=== PATIENT | female | born 1970 | race American Indian/Alaskan Native ===

== ENCOUNTER 2021-01-25 10:39 | Day surgery (SDC) | payer MEDICARE ==
[2021-01-25] MEDS ORDERED: Cyanocobalamin (Vitamin B12) 1,000 MCG/ML SDV IM ONE (10:45)
[2021-01-25] MEDS ORDERED: Propofol 200 MG/20 ML SDV ONE (11:32)
[2021-01-25] MEDS ORDERED: fentaNYL 100 MCG/2 ML SDV ONE (11:32)
[2021-01-25] MEDS ORDERED: Midazolam 1 MG/ML 2 ML SDV ONE (11:32)
[2021-01-25] MEDS ORDERED: Morphine 15 MG Tab.ER PO ONE (11:45)
[2021-01-25] MEDS ORDERED: MVI, Adult with Vitamin K 10 ML, Thiamine 200 MG, Zinc/Copper/Manganese/Selenium 1 ML i... IV ONE ×4 (11:45)
[2021-01-25] MEDS ORDERED: Morphine 15 MG Tab PO ONE (11:45)
[2021-01-25] MEDS ORDERED: Lactated Ringers 1,000 ML IV SCH (11:45)
[2021-01-25] MEDS ORDERED: Glycopyrrolate 0.2 MG/ML 2 ML SDV IVPUSH ONE (12:00)
[2021-01-25] MEDS ORDERED: Pantoprazole 40 MG Vial IVPUSH ONE (15:25)
--- NOTE | 2021-02-12 16:36 | OR ---
DATE OF PROCEDURE: 01/25/2021 SURGEON: Cisco Sanders MD PREOPERATIVE DIAGNOSIS: Dysphagia and epigastric discomfort with weight loss, status post Josette-en-Y gastric bypass. POSTOPERATIVE DIAGNOSES: 1. Dysphagia and epigastric discomfort with weight loss, status post Josette-en-Y gastric bypass. 2. Large marginal ulcer covered with fibrinous exudate. 3. Multiple subcutaneous tissues adjacent to marginal ulcer with adjacent inflammatory reaction. OPERATIVE PROCEDURE: Upper gastrointestinal endoscopy with biopsy of gastric pouch for CLOtest. ANESTHESIA: IV sedation. INDICATION FOR PROCEDURE: This is a 51-year-old female, status post Josette-en-Y gastric bypass in 2005. In 2018, the patient had significant bowel obstruction, treated at [facility] in [place]. She now presents with dysphagia, epigastric discomfort, and significant weight loss, and plan is to proceed with upper GI endoscopy with biopsies and/or dilation as indicated. Potential risks including bleeding and perforation were discussed, and the patient wishes to proceed. DETAILS OF PROCEDURE: The patient was taken to the operating room, was placed in a left lateral decubitus position. IV sedation was administered, after which the upper GI endoscope was passed orally through the length of the esophagus and into the gastric pouch. At the level of the gastric pouch and gastrojejunostomy, the patient was noted to have striking inflammation involving the gastric pouch. Some sutures had kinked into the gastrojejunostomy, were inflammation. There was a large marginal ulcer which was almost obliterating the lumen of the gastrojejunostomy. The scope which was fairly passed through that area into the otherwise more normal-appearing jejunojejunostomy distal to it. At this point, biopsies were obtained from the pouch and sent for CLOtest for H pylori, minimal bleeding from the biopsy site, it was controlled with electrocautery. At this point, the patient will be given Protonix 40 mg IV in the recovery room, then began 40 mg of Protonix orally b.i.d. x1 month. She will be scheduled for a followup endoscopy in 1 month to see if healing of this. If this fails, then revision of the gastrojejunostomy, removal of most of remaining of gastric pouch would be warranted. Cisco Sanders MD /[id number]
== END 2021-01-25 16:33 | disposition home or self-care (01) ==
LOC: JP.SDS 10:39
PROVIDERS: ATTEND Surgery
DX: K28.9 Gastrojejunal ulcer, unspecified as acute or chronic, without hemorrhage or perforation (principal); K29.70 Gastritis, unspecified, without bleeding; R63.4 Abnormal weight loss; Z88.8 Allergy status to other drugs, medicaments and biological substances; Z98.84 Bariatric surgery status; Z86.711 Personal history of pulmonary embolism
CPT/HCPCS: 36415; 43239; 80048; 82306; 82525; 82607; 82728; 82746; 83735; 84100; 84590; 84630; 87081; A9270; C9113; J2250; J2704; J3010; J3411; J3420; J3490; J7120

== ENCOUNTER 2021-02-21 07:15 | Day surgery (SDC) | payer MEDICARE ==
[~2021-02-21 07:15] MED LIST: Cyanocobalamin (Vitamin B12) 1,000 MCG/ML SDV IM ONE; Midazolam 1 MG/ML 2 ML SDV ONE; Propofol 200 MG/20 ML SDV ONE; fentaNYL 100 MCG/2 ML SDV ONE
[2021-02-21] MEDS ORDERED: Lactated Ringers 1,000 ML IV ONE (08:00)
[2021-02-21] MEDS ORDERED: Morphine 15 MG Tab PO ONE (09:10)
[2021-02-21] MEDS ORDERED: MVI, Adult with Vitamin K 10 ML, Thiamine 200 MG, Zinc/Copper/Manganese/Selenium 1 ML i... IV ONE ×4 (10:00)
--- NOTE | 2021-03-06 16:02 | OR ---
DATE OF PROCEDURE: 02/21/2021 SURGEON: Cisco Sanders MD PREOPERATIVE DIAGNOSIS: History of marginal ulcer. POSTOPERATIVE DIAGNOSIS: Persistent marginal ulcer despite ongoing medical management. OPERATIVE PROCEDURE: Upper GI endoscopy with gastric biopsies for CLOtest. ANESTHESIA: IV sedation. INDICATIONS FOR PROCEDURE: A 51-year-old roughly 1 month status post an upper endoscopy which reported very aggressive appearing marginal ulcer. She has been on ongoing proton pump inhibitor treatment for that and is to undergo a followup endoscopy to ascertain whether or not this has healed. Plan is to proceed with upper GI endoscopy with biopsies and/or dilation as indicated. Potential risks including bleeding and perforation were discussed, and the patient wishes to proceed. DETAILS OF PROCEDURE: The patient was taken to the operating room, placed in a left lateral decubitus position. IV sedation was administered, after which the upper GI endoscope was passed orally through the length of the esophagus into the gastric pouch and from there through the gastrojejunostomy roughly 20 cm into the Josette limb. Findings included at this point a normal esophagus and EG junction area. The gastric pouch was mildly reddened. However, there was still a quite large marginal ulcer. This is perhaps slightly better than a month ago, but still is quite dramatic. Biopsies were once again from the gastric pouch were obtained and sent for CLOtest for H pylori. The situation was discussed with the patient postoperatively. At this point, she appears to have a large marginal ulcer that is refractory to medical management and surgical resection would be appropriate at this point to avoid major complications such as perforation and bleeding. We will obtain some preoperative labs. She will be checking with her schedule and give us a call when she would like to proceed with that resection. This would need to be done as an open approach given her previous extensive bowel surgery related to some necrotic small bowel volvulus formation at [facility] some years ago. Cisco Sanders MD /[id number]
== END 2021-02-21 11:06 | disposition home or self-care (01) ==
LOC: JP.SDS 07:15
PROVIDERS: ATTEND Surgery
DX: K22.10 Ulcer of esophagus without bleeding (principal); Z98.84 Bariatric surgery status; Z88.8 Allergy status to other drugs, medicaments and biological substances
CPT/HCPCS: 36415; 43239; 80053; 82607; 82728; 82746; 83735; 84100; 85027; 86850; 86900; 86901; 87081; A9270; J2250; J2704; J3010; J3411; J3420; J7120

== ENCOUNTER 2021-03-05 07:45 | Inpatient (IN) | payer MEDICARE ==
[~2021-03-05 07:45] MED LIST changes: +Acetaminophen 500 MG Tab PO ONE; -Cyanocobalamin (Vitamin B12) 1,000 MCG/ML SDV IM ONE; +Dexamethasone 4 MG/ML SDV ONE; +Gabapentin 300 MG Cap PO ONE; +Glycopyrrolate 0.2 MG/ML 5 ML MDV ONE; +Lactated Ringers 1,000 ML ONE; -Midazolam 1 MG/ML 2 ML SDV ONE; +Neostigmine Methylsulfate 1 MG/ML 5 ML Syringe ONE; +Ondansetron 4 MG/2 ML SDV ONE; +Rocuronium 50 MG/5 ML Vial ONE; +Scopolamine 1.5 MG Transdermal Patch TRDERM SCH; +Succinylcholine 200 MG/10 ML MDV ONE; -fentaNYL 100 MCG/2 ML SDV ONE; +fentaNYL 250 MCG/5 ML SDV ONE
[2021-03-05] MEDS ORDERED: Dextrose 5%-Lactated Ringers 1,000 ML IV SCH (08:00)
[2021-03-05] MEDS ORDERED: Meropenem 500 MG SDV ONE (08:11)
[2021-03-05] MEDS ORDERED: cefOXitin 2 GM in Sodium Chloride 0.9% 50 ML IV ONE (09:00)
[2021-03-05] MEDS ORDERED: Magnesium Sulfate/Water 2 GM/50 ML BAG IV SCH (09:00)
[2021-03-05] MEDS ORDERED: Magnesium Sulfate/Water 2 GM/50 ML BAG IV ONE (09:00)
[2021-03-05] MEDS ORDERED: Lidocaine 1% 2 ML ONE (09:08)
[2021-03-05] MEDS ORDERED: diphenhydrAMINE 25 MG Cap PO PRN ×2 (09:14→13:21)
[2021-03-05] MEDS ORDERED: Naloxone 0.4 MG/ML SDV IVPUSH PRN (09:14)
[2021-03-05] MEDS ORDERED: diphenhydrAMINE 50 MG/ML SDV IVPUSH PRN ×3 (09:14→15:00)
[2021-03-05] MEDS ORDERED: Ondansetron 4 MG/2 ML SDV IVPUSH PRN ×3 (09:14→15:00)
[2021-03-05] MEDS: Morphine PF 150 MG/30 ML PCA Syringe IV PRN ×2 (09:28→10:18)
[2021-03-05] MEDS ORDERED: fentaNYL 250 MCG/5 ML SDV ONE (09:43)
[2021-03-05] MEDS ORDERED: Morphine 15 MG Tab.ER PO SCH (14:00)
[2021-03-05] MEDS ORDERED: Cyclobenzaprine 10 MG Tab PO PRN (14:09)
--- NOTE | 2021-03-05 14:29 | CR ---
CHEST: Portable 03/05/2021 CLINICAL HISTORY:Rule out pneumothorax COMPARISON:None FINDINGS: Limited portable study of the lower chest showed no obvious pneumothorax. Patient is undergoing abdominal surgery. There is a surgical drain in the left upper quadrant. There are some streaky density in both lung bases which is likely some atelectasis or scarring. IMPRESSION: Limited study No obvious pneumothorax Surgical drain left upper quadrant
[2021-03-05] MEDS: Albuterol/Ipratropium 3.0-0.5 MG/3 ML Neb Soln INH SCH ×2 (14:53→20:06)
[2021-03-05] MEDS ORDERED: Ketamine 50 MG in Sodium Chloride 0.9% 49.5 ML IV SCH (15:00)
[2021-03-05] MEDS ORDERED: Metoclopramide 10 MG/2 ML SDV IVPUSH PRN (15:00)
[2021-03-05] MEDS ORDERED: Albuterol/Ipratropium 3.0-0.5 MG/3 ML Neb Soln INH PRN (15:00)
[2021-03-05] MEDS ORDERED: Acetaminophen 500 MG Tab PO PRN (15:00)
[2021-03-05] MEDS ORDERED: hydrOXYzine HCL 100 MG/2 ML SDV IM PRN (15:00)
[2021-03-05] MEDS ORDERED: Calcium Gluconate 10% 1 GM/10 ML SDV IVPUSH PRN (15:00)
[2021-03-05] MEDS ORDERED: Labetalol 20 MG/4 ML Syringe IVPUSH PRN (15:00)
[2021-03-05] MEDS ORDERED: Ketamine 500 MG/5 ML MDV IV SCH (15:00)
[2021-03-05] MEDS: cefOXitin 2 GM in Sodium Chloride 0.9% 50 ML IV SCH ×2 (15:24→20:07)
[2021-03-05] MEDS ORDERED: Pantoprazole 40 MG Vial IVPUSH SCH (16:00)
[2021-03-05] MEDS ORDERED: MVI, Adult with Vitamin K 10 ML, Thiamine 200 MG, Zinc/Copper/Manganese/Selenium 1 ML i... IV SCH ×4 (16:00)
[2021-03-05] MEDS: Acetaminophen 500 MG Tab PO SCH ×2 (16:34→23:09)
[2021-03-05] MEDS: Heparin Sodium 5,000 Units/ML Vial SUBCUT SCH (20:05)
[2021-03-05] MEDS ORDERED: lamoTRIgine 100 MG Tab PO SCH (21:00)
[2021-03-05] MEDS: LORazepam 0.5 MG Tab PO PRN (21:05)
[2021-03-05] MEDS: Gabapentin 400 MG Cap PO SCH (21:05)
[2021-03-05] MEDS: Morphine 15 MG Tab PO SCH (21:05)
[2021-03-05] MEDS: Hydroxychloroquine 200 MG Tab PO SCH (21:06)
[2021-03-05] MEDS: risperiDONE 1 MG Tab PO SCH (21:10)
[2021-03-05] MEDS: Dextrose 5%-Lactated Ringers 1,000 ML IV SCH (22:08)
[2021-03-06] MEDS: cefOXitin 2 GM in Sodium Chloride 0.9% 50 ML IV SCH ×2 (03:00→08:12)
[2021-03-06] MEDS: Morphine 15 MG Tab PO SCH ×4 (05:01→14:43)
--- NOTE | 2021-03-06 05:26 | CRLCR ---
For Patients: As a result of the Century Cures Act, medical imaging exams and procedure reports are released immediately into your electronic medical record. You may view this report before your referring provider. If you have questions, please contact your health care provider. INDICATION: Status post diaphragmatic resection TECHNIQUE: PA and lateral views of the chest COMPARISON: One-view chest 03/05/2021 FINDINGS/IMPRESSION: 1. Small left hydropneumothorax. No appreciable right pneumothorax or pleural effusion. 2. Normal cardiomediastinal silhouette. No focal airspace consolidation. 3. Free air under the right hemidiaphragm, presumably postsurgical. 4. Surgical drain project over the left upper quadrant. Skin aubrey are noted in the midline upper abdomen. Dictated by Sofie Mac MD @ 03/06/2021 5:26:[address] Sofie Mac @ Mar 06 2021 5:26AM
--- NOTE | 2021-03-06 05:44 | CRLCR ---
INDICATION: Post bariatric suregery Findings/Impression: Surgical changes. Normal transit of oral contrast through the gastric pouch into the jejunum. No extraluminal contrast extravasation demonstrated. Mild pneumoperitoneum. Left upper quadrant surgical drain. Dictated by Sofie Mac MD @ 03/06/2021 5:42:57 AM Prelim Report By Dr. Sofie Mac @ 03/06/2021 5:43:01 AM ADDENDUM Agree with preliminary report. No additional findings. Dictated by: Carloz Topete MD @ 03/09/2021 18:39:24 (Electronically Signed)
[2021-03-06] MEDS ORDERED: Iopamidol 612 MG/ML 50 ML SDV PO ONE (06:37)
[2021-03-06] MEDS ORDERED: Ondansetron 4 MG Tab.DIS PO PRN (07:27)
[2021-03-06] MEDS: Albuterol/Ipratropium 3.0-0.5 MG/3 ML Neb Soln INH SCH ×3 (07:28→14:41)
[2021-03-06] MEDS ORDERED: Dextrose 5%-Lactated Ringers 1,000 ML IV SCH (07:30)
[2021-03-06] MEDS: Acetaminophen 500 MG Tab PO SCH (08:05)
[2021-03-06] MEDS: Heparin Sodium 5,000 Units/ML Vial SUBCUT SCH (08:05)
[2021-03-06] MEDS: Dextrose 5%-Lactated Ringers 1,000 ML IV SCH (08:07)
[2021-03-06] MEDS ORDERED: lamoTRIgine 100 MG Tab PO SCH (09:00)
[2021-03-06] MEDS ORDERED: SCOPOLAMINE PATCH CHECK TOP SCH (09:00)
[2021-03-06] MEDS ORDERED: Celecoxib 200 MG Cap PO SCH (09:00)
[2021-03-06] MEDS ORDERED: Leflunomide 20 MG Tab PO SCH (09:00)
--- NOTE | 2021-03-06 09:05 | PN ---
DATE OF SERVICE: 03/06/2021 SUBJECTIVE: Roderick is postop day #1. Upper GI was normal. Chest x-ray was normal. Oral intake 720. Urine output via Soni catheter is 1825. MITCH drain put out 30 mL of a light pink drainage. Pain has been controlled. REVIEW OF SYSTEMS: Remainder of review of systems negative for any pertinent positives and negatives. OBJECTIVE: GENERAL: Roderick Sanchez is a pleasant 51-year-old female. She is alert and orientated. VITAL SIGNS: TPR 98.6, 88, 14, blood pressure 136/82. HEENT: Negative. NECK: Supple. HEART: Regular rate and rhythm. LUNGS: Clear. ABDOMEN: Dressings dry and intact. Abdominal binder is on. MITCH drain as above. EXTREMITIES: Without peripheral edema. ASSESSMENT: Exploratory laparotomy with: 1. Esophagogastrectomy with Josette-en-Y esophagojejunostomy. 2. En bloc diaphragmatic resection. 3. Repair of incarcerated incisional hernia. 4. Placement of Interceed mesh. 5. Repair of paraesophageal diaphragmatic hernia. POSTOPERATIVE DIAGNOSES: 1. Marginal ulcer eroded into diaphragm. 2. Incarcerated incisional hernia. 3. Extensive intraabdominal adhesions. 4. Recurrent paraesophageal hernia. 5. Date of procedure: 03/05/2021. PLAN: 1. Step 2 gastric bypass diet without cereal. 2. Decrease IV to 100 mL per hour. 3. Dressing off, may shower. 4. Discontinue Soni. 5. Discontinue SENIOR PROGRAM MANAGER. 6. Continue original pain medication routine per her pain contract. 7. Ambulate 6 times daily. 8. Use incentive spirometer 10 times every hour while awake. 9. We will evaluate p.r.n. or in a.m. Estela Kent PA-C /[id number]
[2021-03-06] MEDS: Gabapentin 400 MG Cap PO SCH (10:01)
[2021-03-06] MEDS: Hydroxychloroquine 200 MG Tab PO SCH (10:02)
[2021-03-06] MEDS: risperiDONE 1 MG Tab PO SCH (10:26)
[2021-03-06] MEDS ORDERED: Gabapentin 400 MG Cap PO SCH (14:00)
[2021-03-06] MEDS: LORazepam 0.5 MG Tab PO PRN (14:48)
[2021-03-06] MEDS ORDERED: MVI, Adult with Vitamin K 10 ML, Thiamine 200 MG, Zinc/Copper/Manganese/Selenium 1 ML i... IV SCH ×4 (16:00)
[2021-03-07] MEDS ORDERED: Cyanocobalamin (Vitamin B12) 1,000 MCG/ML SDV IM ONE (09:00)
--- NOTE | 2021-03-07 09:21 | DISCH ---
ADMISSION DIAGNOSES: 1. Abdominal pain. 2. Weight loss. 3. Status post Josette-en-Y gastric bypass surgery. DISCHARGE DIAGNOSES: Exploratory laparotomy with: 1. Esophagogastrectomy with Josette-en-Y esophagojejunostomy. 2. En bloc diaphragmatic resection. 3. Repair of incarcerated incisional hernia. 4. Placement of Interceed mesh. 5. Repair of paraesophageal diaphragmatic hernia. POSTOPERATIVE DIAGNOSES: 1. Marginal ulcer eroded into diaphragm. 2. Incarcerated incisional hernia. 3. Extensive intraabdominal adhesions. 4. Recurrent paraesophageal hernia. 5. Date of procedure: 03/05/2021. Surgeon: Cisco Sanders MD. HISTORY: Roderick Sanchez is a 51-year-old female who had a gastric bypass surgery several years ago and developed abdominal pain and an esophagogastroduodenoscopy showed marginal ulcer. After preoperative evaluation and discussion of possible risks and possible complications, she wished to proceed with surgical procedure. HOSPITAL COURSE: Roderick Sanchez had her surgery on 03/05/2021. She had no postop complications. Her upper GI on 03/06/2021 was normal. She tolerated a step 2 gastric bypass diet. Pain was managed with her current pain contract. Activity was good. Oral intake adequate at 800. Urine output was good and she requested to be discharged to home later in the afternoon on 03/06/2021. PHYSICAL EXAMINATION: GENERAL: Roderick is a pleasant 51-year-old female. VITAL SIGNS: Height is 5 feet 8 inches, weight is 123 pounds. TPR is 98.2, 92, 16, blood pressure 131/74. HEENT: Negative. NECK: Supple. HEART: Regular rate and rhythm. LUNGS: Clear. ABDOMEN: Dressings dry and intact. She does have an Aquacel on. MITCH drain was removed prior to discharge. EXTREMITIES: Without peripheral edema. DISPOSITION: Discharged to home. CONDITION: Stable and improving. FOLLOWUP APPOINTMENT: Estela Kent PA-C, on 03/15/2021 at 10:15 a.m. MEDICATIONS: She is to resume her home medications: 1. Morphine 15 mg p.o. t.i.d. 2. Morphine 30 mg p.o. t.i.d. 3. She is on a warfarin sliding scale 5 mg oral Thursday and , and 2.5 mg the other days of the week. 4. She is to hold her vitamins and supplements until after first postop appointment. 5. Resume Risperdal 1 mg p.o. b.i.d. 6. Lamictal 100 mg daily. 7. Leflunomide 20 mg p.o. daily. 8. Plaquenil 200 mg p.o. b.i.d. 9. Protonix 40 mg p.o. b.i.d. 10.Neurontin 1200 mg p.o. t.i.d. 11.Ativan 0.5 mg p.o. b.i.d. DIET: Step 2 gastric bypass diet for 2 weeks until 03/20/2021. ACTIVITY: No lifting greater than 10 pounds for 6 weeks. Walk 6 times daily inside your house. Driving: Do not drive for 1 week and while on narcotic pain medication. DISCHARGE INSTRUCTIONS: Shower/bathing: May shower. Keep operative site clean and dry. Wear abdominal binder for 6 weeks and then as tolerated. Notify provider if any fever, increased pain, swelling, redness, drainage, nausea, or vomiting. SPECIAL INSTRUCTION: Use incentive spirometer 10 times every hour while awake for 1 week. Check ProTime at home and follow your Coumadin sliding scale. If any problems or questions, to call clinic during clinic hours or hospital, [facility] if it is after clinic hours. /[id number]
--- NOTE | 2021-03-07 13:36 | OR ---
DATE OF PROCEDURE: 03/05/2021 SURGEON: Cisco Sanders MD PREOPERATIVE DIAGNOSIS: Chronic marginal ulcer, refractory to medical management. POSTOPERATIVE DIAGNOSES: 1. Chronic marginal ulcer, refractory to medical management, eroded into overlying diaphragm. 2. Recurrent paraesophageal diaphragmatic hernia. 3. Incarcerated incisional hernia. 4. Extensive intraabdominal adhesions. OPERATIVE PROCEDURES: Exploratory laparotomy with: 1. Esophagogastrectomy with Josette-en-Y esophagojejunostomy (46388). 2. En bloc diaphragmatic resection (89783). 3. Repair of paraesophageal diaphragmatic hernia (60379). 4. Repair of incarcerated incisional hernia (53262). 5. Placement of Interceed mesh to limit recurrent adhesion formation between the pelvic and abdominal wall and underlying viscera (58991). ANESTHESIA: General. SPRING COILER HAND: Estela Kent PA-C. INDICATIONS FOR PROCEDURE: This is a 51-year-old, status post previous Josette-en-Y gastric bypass, presenting with a nonhealing marginal ulcer. The patient has been on over a month of Protonix and recent endoscopy showed persistence of the marginal ulcer with a significant risk for bleeding and perforation. The patient continues to smoke, but it is unlikely that at any point in the near future that could be corrected. The plan will be to proceed with exploratory laparotomy with resection of the marginal ulcer either by making a very proximal gastrectomy, which is an esophageal resection depending on the level of the anastomosis based on the quality of the tissue encountered. This would be constructed with a Josette-en-Y either gastrojejunostomy or esophagojejunostomy. Potential risks of the procedure including bleeding, infection, leaks from various GI tract closures, problems with bowel obstruction over time as well as possibility of further weight loss were gone over. We did discuss the option of a feeding tube being placed in the bypassed stomach and at this point, the patient wishes to defer on that knowing that we do quite extensively work with her dietary management postoperatively to avoid some untoward additional weight loss. DETAILS OF PROCEDURE: The patient was taken to the operating room and placed in a supine position. After general endotracheal anesthesia was induced, a Soni catheter was inserted and the abdomen was prepped and draped. The previous upper midline incision was then reused and carried down through the skin and subcutaneous tissue. In the lower half of the incision, which was from the xiphoid to the umbilicus, there was an incarcerated incisional hernia containing some incarcerated omentum within it, which was dissected free. The hernia sac was then excised and at that point fairly extensive intraabdominal adhesions were taken down. Eventually, the area around the gastric pouch was identified. This was associated with a hard mass effect consistent with a large amount of scar in that area and subsequently, this was noted to have eroded into the overlying diaphragm, requiring diaphragmatic resection for a clean resection. The dissection of the gastric pouch was then initiated with electrocautery along with blunt dissection and some aubrey as needed. The portion of diaphragm was invaded by the ulcer and this was resected en bloc with the stomach. The gastric tissue itself at the esophagogastric junction was clearly not amenable to satisfactory anastomosis. This was extremely hard and densely fibrotic. Given this, the distal esophagus was divided with a YESICA black load. The Josette limb coming into the gastrojejunostomy was then divided as well with a YESICA staple and remaining attachments to the distal-most esophagus, gastric pouch, gastrojejunostomy, adjacent jejunum were then divided with a series of aubrey and the specimen delivered from the field. The patient was noted to have a paraesophageal diaphragmatic hernia with prolapse of the stomach prior to the resection including posterior to the gastric pouch. The crural repair was accomplished at this point posterior to the divided esophagus with a series of 0 Ethibond sutures. The diaphragm repair was then accomplished with a running 0 Prolene stitch. A 24-Turkmen chest tube was then placed into the left pleural space and this was placed on suction as the final stitches were drawn up to evacuate any fluid that might be present in the left pleural space. Chest x-ray at the end of the procedure was obtained, which showed no pneumothorax or significant fluid accumulation. The Josette-en-Y esophagojejunostomy was then fashioned. The esophagus was divided with 2 small but separate 28 mm EEA stapler and anvil of a 25 mm EEA stapler was attached to Langlade sump type tube and this was passed down through the mouth taken out a small opening and then divided the esophagus allowing the anvil to be pulled down to within the esophagus. The Josette limb was freed up of some additional adhesions and this then came easily up to the divided esophagus in an antecolic position. limb was antecolic in position as well. The divided Josette limb was then opened and main body of the EEA stapler passed several centimeters in the lumen of the small bowel, now brought up the anvil and united with it, thus creating the esophagojejunostomy. Upon removal of the stapler, double donuts of mucosa were noted within it. Small bowel was closed off with a vascular staple line. The esophagojejunostomy was reinforced with a running 3-0 Vicryl seromuscular stitch on its anterior 2/3 and then with fibrin sealant circumferentially. At that point, no further problems were noted. Two Ed-Bansal drains were then placed through stab wounds in the left subcostal area and positioned around the esophagojejunostomy and into the adjacent splenic fossa. The midline fascia was then approximated with #2 Vicryl stitch, which included repair of the incisional hernia and the subcutaneous tissue was closed with 2 layers of 3-0 and 4-0 Vicryl stitch deep and aubrey for the skin. Prior to closure, bilateral transversus abdominis plane blocks had been placed and the patient was taken to the recovery room in satisfactory condition. Physician assistant director of public works, Estela Kent, played an essential role in assisting in this case, helping to position the patient, retract structures as well as suturing and cutting sutures when indicated. Her presence improved patient safety and decreased the operative time. Cisco Sanders MD /[id number]
[2021-03-07] MEDS ORDERED: Pantoprazole 40 MG Tab.CR PO SCH (16:00)
== END 2021-03-06 16:27 | disposition home or self-care (01) | DRG 327 ==
LOC: JP.SDS 07:45 → JP.SDSSCHI 07:45 → EDSTATUS 10:00 → JP.MS 12:00
PROVIDERS: ADMIT Surgery; ATTEND Surgery
PROC: 0DT Gastrointestinal System, Resection (ICD-10-PCS; principal; 2021-03-05)
PROC: 0DT60ZZ Resection of Stomach, Open Approach (ICD-10-PCS; 2021-03-05)
PROC: 0D150ZA Bypass Esophagus to Jejunum, Open Approach (ICD-10-PCS; 2021-03-05)
PROC: 0BUT0JZ Supplement Diaphragm with Synthetic Substitute, Open Approach (ICD-10-PCS; 2021-03-05)
PROC: 0WUF0JZ Supplement Abdominal Wall with Synthetic Substitute, Open Approach (ICD-10-PCS; 2021-03-05)
PROC: 0BT Respiratory System, Resection (ICD-10-PCS; 2021-03-05)
DX: K44.9 Diaphragmatic hernia without obstruction or gangrene (principal); K43.0 Incisional hernia with obstruction, without gangrene; Z68.1 Body mass index [BMI] 19.9 or less, adult; K66.0 Peritoneal adhesions (postprocedural) (postinfection); K28.9 Gastrojejunal ulcer, unspecified as acute or chronic, without hemorrhage or perforation; R63.4 Abnormal weight loss
CPT/HCPCS: 36415; 71045; 71045-26; 71046; 74240; 80053; 83735; 83880; 84100; 85025; 85610; 86850; 86900; 86901; 94640; 94762; A9270-GY; C9113; J0171; J0330; J0694; J1100; J1644; J2185; J2270; J2405; J2704; J2710; J2795; J3010; J3411; J3475; J3490; J7120; J7121; J7620-GY; Q9967

== ENCOUNTER 2021-09-17 06:01 | Day surgery (SDC) | payer MEDICARE ==
[2021-09-17] MEDS ORDERED: Propofol 200 MG/20 ML SDV ONE (06:15)
[2021-09-17] MEDS ORDERED: Ondansetron 4 MG/2 ML SDV ONE (06:15)
[2021-09-17] MEDS: Dextrose 5%-Lactated Ringers 1,000 ML IV SCH (07:17)
[2021-09-17] MEDS: Glycopyrrolate 0.2 MG/ML 2 ML SDV IVPUSH ONE (07:20)
[2021-09-17] MEDS ORDERED: fentaNYL 100 MCG/2 ML SDV ONE (07:29)
[2021-09-17] MEDS ORDERED: Midazolam 1 MG/ML 2 ML SDV ONE (07:29)
[2021-09-17] MEDS: Thiamine 200 MG in Sodium Chloride 0.9% 100 ML IV ONE (08:59)
[2021-09-17 09:10] VITALS: BP 123/73; PULSE 67
--- NOTE | 2021-09-18 10:27 | OR ---
DATE OF PROCEDURE: 09/17/2021 SURGEON: Cisco Sanders MD PREOPERATIVE DIAGNOSES: 1. Intermittent dysphagia and epigastric pain. 2. Postprandial loose stools. POSTOPERATIVE DIAGNOSES: 1. Normal upper GI endoscopic examination, status post esophagogastrectomy with Josette-en-Y reconstruction. 2. Normal colonoscopic examination (poor prep). ANESTHESIA: IV sedation. INDICATION FOR PROCEDURE: The patient is status post a revision of the Josette-en-Y gastric bypass with formation of esophagojejunostomy several months ago. She presents now with some intermittent dysphasia referable to the distal esophagus and occasional epigastric pain. She also notes postprandial diarrhea, loose stools to be occurring 1 to 2 hours after eating. Plan is to proceed with upper and lower endoscopy. Potential risks of the procedure including bleeding and perforation were discussed, and the patient wishes to proceed. DETAILS OF PROCEDURE: The patient was taken to the operating room and placed in a left lateral decubitus position. IV sedation was administered after which the upper GI endoscope was passed orally through the length of the esophagus and through the area of the esophagojejunostomy and from there roughly 20 cm into the Josette limb. Overall, the findings were entirely normal. There were no areas of inflammation or stricturing present. The anastomosis was very widely opened and should not result in a significant impairment of passage of reasonably chewed food. Scope was then withdrawn and the above findings reconfirmed. Attention was then taken to the colonoscopy. The initial digital rectal exam was performed and was unremarkable. Colonoscope was then passed into the rectum with retroflexion into the fundus, eventually passed to the level of the cecum. The prep was quite poor with there being quite a bit of somewhat solid and liquid stool present. To that level, no abnormalities were noted. Scope was then withdrawn and the procedure then concluded. At this point, we will encourage the patient to increase her intake as her BMI is now down into the 20.7 range. She does like nuts and she prefers cashews and she is encouraged to eat as much as possible which would provide both high calorie and protein, and we will have her meet with Dietary prior to discharge today. The patient is probably having some dumping based on her history and is encouraged to try to minimize simple sugars in her diet and she has been instructed to try some Imodium approximately in 1/2 hour to the expected that she might have some loose stools. We will empirically give the patient 200 mg of thiamine IV today and the patient will be following up with Estela Kent in [facility]] in 1 month. The patient is now 51 and meets criteria for screening colonoscopy. Today's exam was somewhat inadequate in terms of there being a very poor prep. Given this, she should probably undergo a standard screening colonoscopy in the next 1 to 2 years, and she is instructed given the fact that she took 2 32-ounce containers of the Gatorade with MiraLax in it, with the next colonoscopy, she should take 3 bottles each with the 32 ounces of Gatorade and 119 g of MiraLax within it. Cisco Sanders MD /[id number]
== END 2021-09-17 09:29 | disposition home or self-care (01) ==
LOC: JP.SDS 06:01
PROVIDERS: ATTEND Surgery
DX: R13.10 Dysphagia, unspecified (principal); R10.13 Epigastric pain; R19.7 Diarrhea, unspecified; F17.200 Nicotine dependence, unspecified, uncomplicated; Z98.0 Intestinal bypass and anastomosis status; Z88.8 Allergy status to other drugs, medicaments and biological substances; Z79.899 Other long term (current) drug therapy; Z98.84 Bariatric surgery status
CPT/HCPCS: J2250; J2405; J2704; J3010; J3411; J3490; J7121